=== PATIENT | female | born 1935 | race Caucasian/White ===

== ENCOUNTER 2020-08-10 15:11 | Inpatient (IN) | payer MEDICARE, SELFPAY ==
[~2020-08-10] VITALS: Ht 154.9 cm; Wt 54.4 kg
[2020-08-10 15:11] VITALS: BP_SYST 131
--- NOTE | 2020-08-10 15:11 | NUR ---
BROUGHT IN BY [facility], PLACED IN BED #7 AND TRIAGED. REPORT GIVEN TO TAMIKA
--- NOTE | 2020-08-10 15:15 | NUR ---
PT ТАТЬЯНА FROM HOME AFTER NEIGHBORS REPORT FINDING HER ON THE FLOOR OUTSIDE. PT STATES SHE WAS INSIDE GOING THROUGH A BOX. PER EMS PT STATED SHE HAS NOT EATEN IN DAYS AND IS INCONTINANT OF URINE. PT IS CONFUSED UPON ARRIVAL BUT AAOX3, V/S STABLE, AMBULATORY WITH STEADY GAIT. PT DENIES FALL, NO NOTED INJURIES OR TRAUMA.
--- NOTE | 2020-08-10 15:25 | NUR ---
ER DR. HANSEN AT THE BEDSIDE EXAMINING PT
[2020-08-10] MEDS ORDERED: NACL 0.9% 1,000 ML IV ONE (15:30)
--- NOTE | 2020-08-10 15:30 | NUR ---
# 20 gauge angiocath placed to LFA. Use of asceptic technique. Opsite placed over site. Blood return noted. Blood for lab drawn from site. Flushed with 10 cc of normal saline. No evidence of infiltration noted. Patient tolerated well.
--- NOTE | 2020-08-10 15:48 | NUR ---
Patient transported to radiology via WC, accompanied by STAFF.
[2020-08-10 16:01] LABS: BASOPHILS # (AUTO) 0.1 K/uL (0.0-0.2); BASOPHILS % (AUTO) 0.8 % (0.0-2.0); EOSINOPHILS # (AUTO) 0.1 K/uL (0.0-0.4); EOSINOPHILS % (AUTO) 0.4 % (0.0-4.0); HEMOGLOBIN 16.2 g/dL (12.0-16.0); LYMPHOCYTES # (AUTO) 1.4 K/uL (1.0-5.5); LYMPHOCYTES % (AUTO) 10.6 % (20.5-51.5); MEAN CORPUSCULAR HEMOGLOBIN 30 pg (27-31); MEAN CORPUSCULAR HGB CONC 34 % (32-36); MEAN CORPUSCULAR VOLUME 88 fL (79.0-98.0); MONOCYTES # (AUTO) 0.7 K/uL (0.0-1.0); MONOCYTES % (AUTO) 5.2 % (1.7-9.3); PLATELET COUNT (AUTO) 209 K/uL (130-430); RED BLOOD CELL COUNT(AUTO) 5.43 MIL/uL (4.2-6.2); RED CELL DISTRIBUTION WIDTH 13.5 % (9.0-15.0); WHITE BLOOD COUNT (AUTO) 13.3 K/uL (4.8-10.8)
[2020-08-10 16:24] LABS: PROTHROMBIN TIME 10.5 SECS (9.5-12.5)
[2020-08-10 16:30] LABS: ALANINE AMINOTRANSFERASE 27 U/L (12-78); ALBUMIN 3.1 g/dL (3.4-4.8); ASPARTATE AMINOTRANSFERASE 43 U/L (10-37); CHLORIDE 107 mmol/L (98-107); GLUCOSE 125 mg/dL (70-99); POTASSIUM 3.9 mmol/L (3.5-5.1); SODIUM SERUM 145 mmol/L (136-145); TOTAL BILIRUBIN 1.8 mg/dL (0.0-1.0); UREA NITROGEN, BLOOD 26 mg/dL (8-21)
[2020-08-10] MEDS ORDERED: IPRATROPIUM/ALBUTEROL SULFATE 3 ML AMPUL.NEB (DUONEB) INH ONE (16:30)
[2020-08-10 16:35] LABS: ANION GAP 8 (5-15)
[2020-08-10 17:20] LABS: BILIRUBIN,URINE 1+ (NEGATIVE); BLOOD, URINE NEGATIVE (NEGATIVE); COLOR,URINE YELLOW (YELLOW); GLUCOSE,URINE NEGATIVE (NEGATIVE); KETONES,URINE 1+ (NEGATIVE); LEUKOCYTE ESTERASE ,URINE NEGATIVE (NEGATIVE); NITRITE, URINE NEGATIVE (NEGATIVE); PROTEIN URINE TRACE (NEGATIVE); UROBILINOGEN,URINE 0.2 (0.2-1.0)
[2020-08-10 17:23] LABS: CLARITY/URINE SLIGHTLY HAZY (CLEAR)
[2020-08-10 17:32] LABS: BACTERIA,URINE FEW /HPF (None Seen); HYALINE CASTS, URINE 0-10 /LPF (None Seen); MUCUS,URINE 2+ /LPF (None Seen); RBC,URINE NONE SEEN /HPF (0-3); WBC,URINE 0-3 /HPF (0-3)
[2020-08-10] MEDS ORDERED: cefTRIAXone 1 GM in D5W 50 ML IV ONE (18:00)
[2020-08-10] MEDS ORDERED: cefTRIAXone 1 GM VIAL ONE (18:00)
--- NOTE | 2020-08-10 18:11 | NUR ---
DR. CLINTON AT THE BEDSIDE EXAMINING PT
[2020-08-10] MEDS ORDERED: LR 500 ML IV ONE (18:15)
--- NOTE | 2020-08-10 18:28 | NUR ---
TAKEN TO RADIOLOGY VIA JAYLYN
[2020-08-10] MEDS ORDERED: IPRATROPIUM/ALBUTEROL SULFATE 3 ML AMPUL.NEB (DUONEB) INH PRN (18:45)
[2020-08-10] MEDS ORDERED: ASPIRIN 81 MG TABLET(ECOTRIN) PO ONE (18:45)
--- NOTE | 2020-08-10 18:55 | NUR ---
ADMISSION NOTE Received patient from ER via nydia, received report from PLATE SENSITIZER. Patient admitted with diagnosis of ALOC. Patient oriented to hospital routine, call light, toileting and safety-patient verbalized understanding.
[2020-08-10 20:00] VITALS: BP_SYST 117
[2020-08-10 20:41] VITALS: BP_SYST 128
[2020-08-11 02:14] VITALS: BP_SYST 116
--- NOTE | 2020-08-11 05:15 | NUR ---
CONSULTATION PAGED/CALLED Reason for Consultation: ALOC Person Who was Notified: DR DEAN WHO IS COVERING Simi LAMBERT Consulting Physician: DR DEAN Cardiac Rehab Nurse Specialty: Ordering Physician: MARY BETH
[2020-08-11 06:25] LABS: BASOPHILS # (AUTO) 0.1 K/uL (0.0-0.2); BASOPHILS % (AUTO) 0.6 % (0.0-2.0); EOSINOPHILS # (AUTO) 0.2 K/uL (0.0-0.4); EOSINOPHILS % (AUTO) 1.9 % (0.0-4.0); HEMATOCRIT 42.3 % (36-48); HEMOGLOBIN 14.1 g/dL (12.0-16.0); LYMPHOCYTES # (AUTO) 1.9 K/uL (1.0-5.5); LYMPHOCYTES % (AUTO) 18.6 % (20.5-51.5); MEAN CORPUSCULAR HEMOGLOBIN 30 pg (27-31); MEAN CORPUSCULAR HGB CONC 33 % (32-36); MEAN CORPUSCULAR VOLUME 90 fL (79.0-98.0); MONOCYTES # (AUTO) 0.7 K/uL (0.0-1.0); MONOCYTES % (AUTO) 6.3 % (1.7-9.3); NEUTROPHILS # (AUTO) 7.5 K/uL (1.8-7.7); NEUTROPHILS % (AUTO) 72.6 % (40.0-70.0); PLATELET COUNT (AUTO) 185 K/uL (130-430); RED BLOOD CELL COUNT(AUTO) 4.73 MIL/uL (4.2-6.2); RED CELL DISTRIBUTION WIDTH 13.5 % (9.0-15.0); WHITE BLOOD COUNT (AUTO) 10.3 K/uL (4.8-10.8)
[2020-08-11 06:56] LABS: ALANINE AMINOTRANSFERASE 25 U/L (12-78); ALBUMIN 2.4 g/dL (3.4-4.8); ANION GAP 7 (5-15); ASPARTATE AMINOTRANSFERASE 32 U/L (10-37); CHLORIDE 109 mmol/L (98-107); CREATININE 0.59 mg/dL (0.55-1.30); FREE T4 (FREE THYROXINE) 1.1 ng/dl (0.8-1.5); GLUCOSE 77 mg/dL (70-99); POTASSIUM 3.5 mmol/L (3.5-5.1); SODIUM SERUM 146 mmol/L (136-145); THYROID STIMULATING HORMONE 2.94 uIu/mL (0.36-3.74); TOTAL BILIRUBIN 1.1 mg/dL (0.0-1.0); UREA NITROGEN, BLOOD 21 mg/dL (8-21)
--- NOTE | 2020-08-11 07:30 | NUR ---
AM ROUNDS: BEDSIDE REPORT GIVEN BY NIGHT NURSE GISELL.PATIENT ON THE BED,SLEEPING. CALL LIGHT WITH IN REACH.BED LOCKED AT LOWEST POSITION.BED ALARM ON. STABLE.
[2020-08-11 08:39] VITALS: BP_SYST 125
[2020-08-11] MEDS: ASPIRIN 81 MG TABLET(ECOTRIN) PO SCH (08:42)
[2020-08-11 12:00] VITALS: BP_SYST 126
--- NOTE | 2020-08-11 12:12 | NUR ---
SS notes: ACTIVITIES COUNSELOR received a referral from ED MD Cool, for pt home safety. ACTIVITIES COUNSELOR read the notes from file stating pt. was found outside her home, had not eaten in days and was incontinent of urine, confused. ACTIVITIES COUNSELOR met with patient bedside. Pt was friendly, maintained eye contact and was able to confirm her address and emergency contacts. Pt confirmed she lives alone and she only has a friend, Myra, who lives up the street that checks on her. Pt stated she speaks to Myra daily. Pts. daughter, Tricia Smith resides in [place] . Pt. stated, " I can't figure out why my daughter has not called me her at the hospital". Pt. added she has has a zwnroo-th-hke in [place], but they do not talk. During the interview, pt. tried her best to answer ACTIVITIES COUNSELOR's questions. Pt. did not know who her PCP is and said it had been a while since she had seen a dr. Pt. stated she did not fall. She was in her home sitting on the floor, going through a box. He door was unlocked and her neighbor came through to check on her and found her on the floor. Patient could not recall a lot of answers such as when was the last time she received her grocery delivery, when did she eat last, what was the last meal she prepared? According to pt. her daughter pays her rent and has groceries delivered to pts. home. ACTIVITIES COUNSELOR asked pt. who cooks and cleans for her. Pt. stated she does it all. Pt. stated she is able to walk around on her own. Pt. has a walker in the garage and is thinking of getting it out and brining it inside in the event she needs it. Pt. stated she gets around and does not have to walk about too much. Patinent stated she lives in a home and there is a step to get to the patio, a step to walk into the house and a step to the porch. Pt. stated she does not use any DMEs. ACTIVITIES COUNSELOR revisited pts. self care. Pt. stated she gets groceries sent to her. Pt. will make toast, a sandwich and then looked off into the distance as if to recall more food she prepares and eats. ACTIVITIES COUNSELOR will call the daugther and possibly APS. Addendum: 08/11/20 at 1454 by Jessica Palacio ACTIVITIES COUNSELOR notes ACTIVITIES COUNSELOR called pts. daughter, no answer so tried son-in-law David's Ph, . 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 hogan. Daughter Tricia and son-in-law David stated they dropped everything and traveled all night to get here. They were disappointed to hear they will not be permitted inside to see pt. Both gave some additional info. stating their friends, kicked in the door to get to pt. inside her home. Pt. was found on the floor, weak, unable to stand and was sitting in her own feces and urine. It is unknown how long pt. had been there. Tricia confirmed she sends groceries in addition to a food runner, Swanns with meals already prepared. Pt. was not storing them correctly and the groceries were pile outside the door. David stated the ambulance had to clear a pathway in order to get in and out of the home as stuff was just stored and piled. Both David and Tricia would like for pt. upon discharge to go to a facility to gain her strength and then they would want to move pt. to [place] to live with them. Both Tricia and David stated it is clear to them pt. cannot live in her home alone. Family would like to speak to Dr. Astorga today for an update. Sup. Seda Yung assisted ACTIVITIES COUNSELOR in helping the family come to the window to see pt. ACTIVITIES COUNSELOR will call Dr. Astorga to ask him to speak to the family. Family is staying at a nearby [facility] and are having work done on pts. home as they stated it is in real bad shape. After the family visit through the window, ACTIVITIES COUNSELOR notified Seda the visit has ended. Family can be reached with the above stated phone numbers.
--- NOTE | 2020-08-11 12:19 | NUR ---
PAGED DR EMIL ZHOU, SPOKE WITH EXCHANGE
[2020-08-11] MEDS: cefTRIAXone 1 GM in D5W 50 ML IV SCH (12:45)
--- NOTE | 2020-08-11 13:15 | NUR ---
Family Came: Spoke with daughter Tricia and son in law David at the lobby ,updates given and psychotherapist social worker will talk to them as well.
--- NOTE | 2020-08-11 13:20 | NUR ---
Id Called back: Spoke with Dr Hunter relayed results positive blood culture,continue with current iv antibiotics ,Rocephin and Vancomycin and awaits sensitivity.
[2020-08-11] MEDS: VANCOMYCIN HCL 750 MG/NS 250 ML IV SCH (13:41)
--- NOTE | 2020-08-11 18:40 | NUR ---
Closing Notes: Patient ate dinner. Iv to saline lock. Call light with in reach. Bed locked at lowest position.Safety measures rendered. Bed alarm on. Not in any distress.continue to monitor.
--- NOTE | 2020-08-11 19:25 | NUR ---
CHANGE OF SHIFT; endorsed by day shift. no distress. schedule for abdominal US in am. call light within reach.
[2020-08-11 20:15] VITALS: BP_SYST 126
--- NOTE | 2020-08-11 20:15 | NUR ---
NOTES; pt. checked, resting in bed, uses bedside commode. VS checked, IV lock on left arm. on room air, occ. bouts of cough. cutting department supervisor shows sinus rhythm. instructed pt. to use call light if help needed and verbalized understanding.
--- NOTE | 2020-08-11 21:00 | NUR ---
NOTES: no medications due. no complaints.
--- NOTE | 2020-08-11 22:30 | NUR ---
NOTES: pt. checked, and sleeping. will be NPO after midnite for abdominal US in am.
--- NOTE | 2020-08-12 00:30 | NUR ---
NOTES: pt. awakened, assisted to the bedside commode. IV antibiotic start to infuse. pt. instructed to be NPO for abdominal ultrasoun=d this am.
[2020-08-12] MEDS: VANCOMYCIN HCL 750 MG/NS 250 ML IV SCH ×2 (00:33→12:48)
[2020-08-12 00:57] VITALS: BP_SYST 151
--- NOTE | 2020-08-12 03:04 | NUR ---
NOTES: made rounds and pt. sleeping. repositioned self for comfort.
--- NOTE | 2020-08-12 03:15 | NUR ---
NOTES: pt. HR on the monitor on the low 40-50's , asymptomatic. continue to monitor.
--- NOTE | 2020-08-12 05:11 | NUR ---
NOTES: condition observed, continue to monitor. pt. remain sleeping. remains sinus bradycardia.
--- NOTE | 2020-08-12 06:44 | NUR ---
CLOSING NOTES; pt. remain sleeping. IV tko , will IV lock when awake, no complaints. for further care and assist. will endorse to incoming shift.
[2020-08-12 08:00] VITALS: BP_SYST 150
[2020-08-12] MEDS: ASPIRIN 81 MG TABLET(ECOTRIN) PO SCH (08:29)
[2020-08-12 11:26] VITALS: BP_SYST 124
[2020-08-12] MEDS: cefTRIAXone 1 GM in D5W 50 ML IV SCH (11:42)
[2020-08-12] MEDS ORDERED: D5W 500 ML IV ONE (13:30)
[2020-08-12] MEDS ORDERED: PANTOPRAZOLE SODIUM 40 MG TAB PO ONE (13:30)
--- NOTE | 2020-08-12 14:30 | NUR ---
Note Pt was seen and assessed by Dr Astorga at 1300. Questions/concerns were answered at this time. Pt got OOB and ambulated with PT at 1400 with FWW. Pt went out into hallway with steady gait and standby assist. Pt got tired after one round of ambulation and now resting in bed. Pt used BSC all shift to void independently. Pt next to nurses' station for close observation for needs and care. Call light within reach.
--- NOTE | 2020-08-12 15:34 | NUR ---
DC Planning : discussed dcp with son in law/David: stated him and pt dtr/Tricia want pt going to snf. He will contact his /Tricia to call be back sierra to concur with the snf choice. Ins. contracted sn[facility] provided [facility], [facility].
[2020-08-12 16:00] VITALS: BP_SYST 127
--- NOTE | 2020-08-12 19:15 | NUR ---
OPENING NOTE REPORT RECEIVED FROM DAYSHIFT NURSE. PATIENT RECEIVED LYING IN BED, AWAKE, NO S/S OF ACUTE DISTRESS, PATIENT DENIES PAIN. BREATHING EVEN AND UNLABORED. IVF INFUSING WELL, IV SITE PATENT, NO SIGNS OF INFILTRATION OR INFECTION NOTED. CALL LIGHT WITH PATIENT. BED IS LOCKED AND AT LOWEST POSITION. WILL CONTINUE TO MONITOR.
[2020-08-12 20:00] VITALS: BP_SYST 125
[2020-08-13 00:40] VITALS: BP_SYST 130
[2020-08-13] MEDS: VANCOMYCIN HCL 750 MG/NS 250 ML IV SCH (00:47)
--- NOTE | 2020-08-13 03:42 | NUR ---
TRANSFER OF CARE PATIENT IN BED, ASLEEP. NO S/S OF ACUTE DISTRESS. ALL NEEDS MET THROUGHOUT SHIFT. FALL, SAFETY PRECAUTIONS MAINTAINED.
--- NOTE | 2020-08-13 03:45 | NUR ---
NOTES: report given from nurse Gil for continuity of care. New IV site on left forearm and resume IVF. pt. back to bed and repositioned self for comfort. no complaints noteed. pt. uses bedside commode. call light within reach.
--- NOTE | 2020-08-13 05:30 | NUR ---
NOTES: pt. checked and sleeping comfortably. continue to mnitor.
--- NOTE | 2020-08-13 06:49 | NUR ---
CLOSING NOTES; pt. still sleeping. no complaints. IVF infusing. needs attended . for further care and assistance. call light within reach.
[2020-08-13 06:53] LABS: BASOPHILS # (AUTO) 0.1 K/uL (0.0-0.2); BASOPHILS % (AUTO) 0.8 % (0.0-2.0); EOSINOPHILS # (AUTO) 0.2 K/uL (0.0-0.4); EOSINOPHILS % (AUTO) 1.8 % (0.0-4.0); HEMATOCRIT 43.9 % (36-48); HEMOGLOBIN 14.8 g/dL (12.0-16.0); LYMPHOCYTES # (AUTO) 1.5 K/uL (1.0-5.5); LYMPHOCYTES % (AUTO) 14.5 % (20.5-51.5); MEAN CORPUSCULAR HEMOGLOBIN 30 pg (27-31); MEAN CORPUSCULAR HGB CONC 34 % (32-36); MEAN CORPUSCULAR VOLUME 90 fL (79.0-98.0); MONOCYTES # (AUTO) 0.8 K/uL (0.0-1.0); MONOCYTES % (AUTO) 7.5 % (1.7-9.3); NEUTROPHILS # (AUTO) 7.8 K/uL (1.8-7.7); NEUTROPHILS % (AUTO) 75.4 % (40.0-70.0); PLATELET COUNT (AUTO) 198 K/uL (130-430); RED BLOOD CELL COUNT(AUTO) 4.91 MIL/uL (4.2-6.2); RED CELL DISTRIBUTION WIDTH 13.3 % (9.0-15.0); WHITE BLOOD COUNT (AUTO) 10.3 K/uL (4.8-10.8)
[2020-08-13 07:11] LABS: ALANINE AMINOTRANSFERASE 40 U/L (12-78); ALBUMIN 2.4 g/dL (3.4-4.8); ANION GAP 7 (5-15); ASPARTATE AMINOTRANSFERASE 32 U/L (10-37); CHLORIDE 105 mmol/L (98-107); CREATININE 0.59 mg/dL (0.55-1.30); GLUCOSE 91 mg/dL (70-99); POTASSIUM 3.7 mmol/L (3.5-5.1); SODIUM SERUM 141 mmol/L (136-145); TOTAL BILIRUBIN 0.9 mg/dL (0.0-1.0); UREA NITROGEN, BLOOD 14 mg/dL (8-21)
[2020-08-13 07:48] VITALS: BP_SYST 122
[2020-08-13] MEDS: ASPIRIN 81 MG TABLET(ECOTRIN) PO SCH (08:17)
[2020-08-13] MEDS: PANTOPRAZOLE SODIUM 40 MG TAB PO SCH (08:17)
[2020-08-13 09:50] VITALS: BP_SYST 122
--- NOTE | 2020-08-13 10:12 | NUR ---
CM note: [facility]: the pt is accepted but will take the pt on Saturday. She needs to get auth from [facility] insurance. Kirit Solano/fercho Gutierrez, unable to accept the pt. The facility is not contracted with [facility] senior plan , but only with [facility] plan.
[2020-08-13] MEDS ORDERED: IPRA3AMP9 INH (11:18)
[2020-08-13] MEDS ORDERED: Aspirin Ec PO (11:18)
[2020-08-13] MEDS ORDERED: PRO40 PO (11:18)
[2020-08-13] MEDS: cefTRIAXone 1 GM in D5W 50 ML IV SCH (11:19)
[2020-08-13] MEDS ORDERED: MULT-1117 PO (11:19)
--- NOTE | 2020-08-13 11:40 | NUR ---
Taz Astorga, family want to talk to the admitting doctor. Addendum: 08/13/20 at 1145 by Kusum Coker RN Daughter Kim. Smith spoke to Dr. Astorga
[2020-08-13 12:39] VITALS: BP_SYST 129
--- NOTE | 2020-08-13 14:15 | NUR ---
Out of bed to bedside commode with minimal assist , perineal care /hygiene given , hair dry shampoo , safety/fall precaution initiated.
[2020-08-13 17:03] VITALS: BP_SYST 132
--- NOTE | 2020-08-13 19:30 | NUR ---
OPENING NOTES: Received report from dayshift nurse. Patient is laying in bed with no s/s of distress or discomfort. She is on room air tolerating well. IV noted on LFA with dry and intact dressing. Ensured all safety precautions. Bed is locked and in the lowest position with call light within reach.
[2020-08-13 20:00] VITALS: BP_SYST 122
[2020-08-14] VITALS: BP_SYST 131
[2020-08-14 08:09] VITALS: BP_SYST 144
[2020-08-14] MEDS: PANTOPRAZOLE SODIUM 40 MG TAB PO SCH (08:51)
[2020-08-14] MEDS: ASPIRIN 81 MG TABLET(ECOTRIN) PO SCH (08:52)
[2020-08-14 11:21] VITALS: BP_SYST 149
[2020-08-14] MEDS: cefTRIAXone 1 GM in D5W 50 ML IV SCH (12:44)
[2020-08-14 15:45] VITALS: BP_SYST 126
--- NOTE | 2020-08-14 19:30 | NUR ---
OPENING NOTE RECEIVED PATIENT REPORT FROM DAY SHIFT RN. PATIENT IS ALERT, AWAKE, AND ORIENTED X 3. PATIENT IS RESTING IN HER BED. NO SIGNS OF ACUTE DISTRESS NOTED. PATIENT IS BREATHING EASY UNLABORED TO ROOM AIR. NO SIGNS OF RESPIRATORY DISTRESS NOTED. CALL LIGHT WITHIN REACH. BED IS LOCKED AND BED ALARM IS ON AT THE LOWEST POSITION. SAFETY AND FALL PRECAUTIONS IN PLACED. WILL CONTINUE TO MONITOR.
[2020-08-14 20:00] VITALS: BP_SYST 142
--- NOTE | 2020-08-14 22:50 | NUR ---
IV PLACEMENT: # 22 gauge angiocath placed to RIGHT AC. Use of asceptic technique. Opsite placed over site. Blood return noted. Flushed with 5 cc of normal saline. No evidence of infiltration noted. Patient tolerated WELL.
--- NOTE | 2020-08-14 23:41 | NUR ---
NOTIFIED DR. CLINTON REGARDING PT HIGH BLOOD PRESSURE. NEW ORDER RECEIVED. WILL CARRY OUT.
[2020-08-14] MEDS ORDERED: cloNIDine HCL 0.1 MG TABLET PO PRN (23:45)
[2020-08-15] VITALS: BP_SYST 146
[2020-08-15 06:30] LABS: BASOPHILS # (AUTO) 0.1 K/uL (0.0-0.2); BASOPHILS % (AUTO) 0.7 % (0.0-2.0); EOSINOPHILS # (AUTO) 0.2 K/uL (0.0-0.4); EOSINOPHILS % (AUTO) 2.2 % (0.0-4.0); HEMATOCRIT 42.8 % (36-48); HEMOGLOBIN 14.3 g/dL (12.0-16.0); LYMPHOCYTES # (AUTO) 1.5 K/uL (1.0-5.5); LYMPHOCYTES % (AUTO) 18.4 % (20.5-51.5); MEAN CORPUSCULAR HEMOGLOBIN 30 pg (27-31); MEAN CORPUSCULAR HGB CONC 33 % (32-36); MEAN CORPUSCULAR VOLUME 90 fL (79.0-98.0); MONOCYTES # (AUTO) 0.7 K/uL (0.0-1.0); MONOCYTES % (AUTO) 8.8 % (1.7-9.3); NEUTROPHILS # (AUTO) 5.6 K/uL (1.8-7.7); NEUTROPHILS % (AUTO) 69.9 % (40.0-70.0); PLATELET COUNT (AUTO) 213 K/uL (130-430); RED BLOOD CELL COUNT(AUTO) 4.76 MIL/uL (4.2-6.2); RED CELL DISTRIBUTION WIDTH 13.7 % (9.0-15.0); WHITE BLOOD COUNT (AUTO) 8.1 K/uL (4.8-10.8)
--- NOTE | 2020-08-15 06:46 | NUR ---
CLOSING NOTE Addendum: 08/15/20 at 0646 by Jaime Pearson RN BARBARA
--- NOTE | 2020-08-15 06:46 | NUR ---
CLOSING NOTE PATIENT IS RESTING IN HER BED. NO SIGNS OF ACUTE DISTRESS NOTED. PATIENT IS BREATHING EASY UNLABORED TO ROOM AIR. NO SIGNS OF RESPIRATORY DISTRESS NOTED. CALL LIGHT WITHIN REACH. BED IS LOCKED, BED ALARM IS ON AND PLACED AT THE LOWEST POSITION. SAFETY AND FALL PRECAUTIONS IN PLACED. ALL NEEDS ARE MET THROUGHOUT SHIFT. WILL CONTINUE TO MONITOR UNTIL ENDORSE TO DAY SHIFT RN.
[2020-08-15 06:50] LABS: ANION GAP 7 (5-15); CALCIUM 8.3 mg/dL (8.4-11.0); CHLORIDE 105 mmol/L (98-107); CREATININE 0.86 mg/dL (0.55-1.30); GLUCOSE 89 mg/dL (70-99); POTASSIUM 3.5 mmol/L (3.5-5.1); SODIUM SERUM 143 mmol/L (136-145); UREA NITROGEN, BLOOD 20 mg/dL (8-21)
[2020-08-15 08:30] VITALS: BP_SYST 146
[2020-08-15] MEDS: ASPIRIN 81 MG TABLET(ECOTRIN) PO SCH (08:35)
[2020-08-15] MEDS: PANTOPRAZOLE SODIUM 40 MG TAB PO SCH (08:35)
--- NOTE | 2020-08-15 09:10 | NUR ---
OPENING NOTES: RECEIVED REPORT FROM ANDI USING SBAR REPORTING. WILL CONTINUE TO MONITOR PATIENT.
[2020-08-15] MEDS: cefTRIAXone 1 GM in D5W 50 ML IV SCH (11:32)
[2020-08-15 12:00] VITALS: BP_SYST 148
[2020-08-15 16:33] VITALS: BP_SYST 132
--- NOTE | 2020-08-15 19:20 | NUR ---
OPENING NOTES RECEIVED PATIENT IN BED AWAKE. BREATHING UNLABORED ON ROOM AIR. NO C/O PAIN AT THIS TIME. BED IN LOWEST LOCKED POSITION WITH ALARM ON. CALL LIGHT WITH IN REACH.
--- NOTE | 2020-08-15 19:32 | NUR ---
CLOSING NOTES: PATIENT IS AWAKE LAYING DOWN IN BED. TOLERATED OXYGEN ON ROOM AIR WITH NO DISTRESS NOTED. IV LINE PATENT AND INTACT WITH NO INFILTRATION NOTED. PATIENT STABLE CONDITION. SAFETY, FALL, AND ASPIRATION PRECAUTIONS REMAINED IN PLACE. BED LOCKED IN LOWEST POSITION AND CALL LIGHT IN REACH. WILL ENDORSE PATIENT CARE TO ONCOMING COST ENGINEER NURSE.
[2020-08-15 20:58] VITALS: BP_SYST 124
--- NOTE | 2020-08-15 21:02 | NUR ---
VITALS PATIENT VITAL SIGNS TAKEN ALL STABLE. DENIES ANY PAIN. ENCOURAGED PATIENT TO USE CALL LIGHT FOR ASSISTANCE, PLACED WITH IN REACH. NO DISTRESS NOTED.
--- NOTE | 2020-08-15 23:45 | NUR ---
OOB ASSISTED PATIENT WITH BEDSIDE COMMODE USE. PERINEAL CARE DONE.
[2020-08-16] VITALS: BP_SYST 121
--- NOTE | 2020-08-16 00:35 | NUR ---
ROUNDS PATIENT RESTING IN BED. BREATHING UNLABORED ON ROOM AIR. VITAL SIGNS STABLE. CALL LIGHT WITH IN REACH.
--- NOTE | 2020-08-16 03:22 | NUR ---
ROUNDS NO DISTRESS NOTED. BED ALARM ON.
--- NOTE | 2020-08-16 06:46 | NUR ---
CLOSING NOTES PATIENT NEEDS ATTENDED. CONDITION UNCHANGED.
--- NOTE | 2020-08-16 07:25 | NUR ---
OPENING NOTES: RECEIVED FROM QUALITY CONTROL LEAD NURSE. PATIENT IS ASLEEP LAYING IN BED. TOLERATED OXYGEN ON ROOM AIR WITH NO DISTRESS NOTED. IV LINE PATENT AND INTACT WITH NO INFILTRATION NOTED. PATIENT IN STABLE CONDITION. SAFETY, FALL, AND ASPIRATION PRECAUTIONS ARE IN PLACE. BED LOCKED IN LOWEST POSITION AND CALL LIGHT IN REACH. WILL CONTINUE TO MONITOR PATIENT FOR ANY CHANGES.
[2020-08-16 08:00] VITALS: BP_SYST 143
[2020-08-16] MEDS: PANTOPRAZOLE SODIUM 40 MG TAB PO SCH (08:10)
[2020-08-16] MEDS: ASPIRIN 81 MG TABLET(ECOTRIN) PO SCH (08:10)
[2020-08-16 09:07] VITALS: BP_SYST 143
[2020-08-16] MEDS: cefTRIAXone 1 GM in D5W 50 ML IV SCH (11:30)
--- NOTE | 2020-08-16 11:32 | NUR ---
Dietitian Recommendations *Recommend: continue Mechanical soft diet as ordered. *Recommend: add ONS Ensure Enlive BID (provides: 700 kcal, 40gm protein daily). *Recommend: add stool regimen for regular BM's. (No BM x 5 days). Please see Nutritional Assessment for details. CASSIE HAUSER
[2020-08-16 12:23] VITALS: BP_SYST 130
[2020-08-16 16:18] VITALS: BP_SYST 135
--- NOTE | 2020-08-16 18:55 | NUR ---
CLOSING NOTES: PATIENT IS ASLEEP LAYING IN BED. TOLERATED OXYGEN ON ROOM AIR WITH NO DISTRESS NOTED. IV LINE PATENT AND INTACT WITH NO INFILTRATION NOTED. PATIENT IN STABLE CONDITION. SAFETY, FALL, AND ASPIRATION PRECAUTIONS REMAINED IN PLACE. BED LOCKED IN LOWEST POSITION AND CALL LIGHT IN REACH. WILL ENDORSE PATIENT CARE TO ONCOMING DRESSING ROOM PORTER NURSE.
--- NOTE | 2020-08-16 19:30 | NUR ---
OPENING NOTES: RECEIVED REPORT FROM DAY SHIFT NURSE. PATIENT IS ASLEEP LAYING IN BED. TOLERATED OXYGEN ON ROOM AIR WITH NO DISTRESS NOTED. IV LINE PATENT AND INTACT WITH NO INFILTRATION NOTED. PATIENT IN STABLE CONDITION. SAFETY, FALL, AND ASPIRATION PRECAUTIONS ARE IN PLACE. BED LOCKED IN LOWEST POSITION AND CALL LIGHT IN REACH. WILL CONTINUE TO MONITOR PATIENT FOR ANY CHANGES.
[2020-08-16 20:00] VITALS: BP_SYST 122
[2020-08-17] VITALS: BP_SYST 146
--- NOTE | 2020-08-17 03:46 | NUR ---
RN NOTE PT RESTING IN BED. NO S/S OF ACUTE DISTRESS NOTED. WILL MONITOR.
[2020-08-17 06:54] LABS: BASOPHILS # (AUTO) 0.1 K/uL (0.0-0.2); EOSINOPHILS # (AUTO) 0.2 K/uL (0.0-0.4); EOSINOPHILS % (AUTO) 2.2 % (0.0-4.0); HEMATOCRIT 41.4 % (36-48); HEMOGLOBIN 13.8 g/dL (12.0-16.0); LYMPHOCYTES # (AUTO) 1.8 K/uL (1.0-5.5); LYMPHOCYTES % (AUTO) 20.9 % (20.5-51.5); MEAN CORPUSCULAR HEMOGLOBIN 30 pg (27-31); MEAN CORPUSCULAR HGB CONC 33 % (32-36); MEAN CORPUSCULAR VOLUME 90 fL (79.0-98.0); MONOCYTES # (AUTO) 0.7 K/uL (0.0-1.0); MONOCYTES % (AUTO) 8.3 % (1.7-9.3); NEUTROPHILS # (AUTO) 5.7 K/uL (1.8-7.7); NEUTROPHILS % (AUTO) 67.6 % (40.0-70.0); PLATELET COUNT (AUTO) 241 K/uL (130-430); RED BLOOD CELL COUNT(AUTO) 4.62 MIL/uL (4.2-6.2); RED CELL DISTRIBUTION WIDTH 13.4 % (9.0-15.0); WHITE BLOOD COUNT (AUTO) 8.4 K/uL (4.8-10.8)
--- NOTE | 2020-08-17 07:04 | NUR ---
CLOSING NOTE PATIENT IS ASLEEP LAYING IN BED. TOLERATED OXYGEN ON ROOM AIR WITH NO DISTRESS NOTED. IV LINE PATENT AND INTACT WITH NO INFILTRATION NOTED. PATIENT IN STABLE CONDITION. SAFETY, FALL, AND ASPIRATION PRECAUTIONS ARE IN PLACE. BED LOCKED IN LOWEST POSITION AND CALL LIGHT IN REACH. WILL CONTINUE TO MONITOR PATIENT UNTIL REPORT IS GIVEN TO DAY SHIFT RN.
[2020-08-17 07:15] LABS: ANION GAP 7 (5-15); CALCIUM 8.7 mg/dL (8.4-11.0); CHLORIDE 107 mmol/L (98-107); CREATININE 0.61 mg/dL (0.55-1.30); GLUCOSE 89 mg/dL (70-99); POTASSIUM 3.9 mmol/L (3.5-5.1); SODIUM SERUM 145 mmol/L (136-145); UREA NITROGEN, BLOOD 22 mg/dL (8-21)
--- NOTE | 2020-08-17 07:56 | NUR ---
OPENING NOTE RECEIVED REPORT FROM NIGHT NURSE. PATIENT IS ALERT AND ORIENTED X4. ON ROOM AIR AND TOLERATING WELL WITH NO SIGNS OF SHORTNESS OF BREATH NOTED. IV IS PATENT, SALINE LOCKED. BED LOCKED AND IN LOWEST POSITION. CALL LIGHT WITHIN REACH. FALL AND SAFETY PRECAUTIONS IN PLACE. WILL CONTINUE TO MONITOR.
[2020-08-17 08:00] VITALS: BP_SYST 127
[2020-08-17] MEDS: PANTOPRAZOLE SODIUM 40 MG TAB PO SCH (08:16)
[2020-08-17] MEDS: ASPIRIN 81 MG TABLET(ECOTRIN) PO SCH (08:17)
[2020-08-17] MEDS: cefTRIAXone 1 GM in D5W 50 ML IV SCH (11:15)
[2020-08-17 12:18] VITALS: BP_SYST 122
--- NOTE | 2020-08-17 14:00 | NUR ---
Late entry for Tuesday 08/15 at 1348 pm: Faxed [facility] order requesting auth for [facility] to [employer]/Britany # [phone], tel [phone] followed up on Wednesday 08/16. :VM to Debi # [phone] x2 . I did not received a call back, by 1500 I called Britany asking her to f/u on authorization. She said Debi was doing the review and will need more support documentation. Debi called be back requested PT and updated progress notes. I faxed to her per request. >> Today I LVM followed up , to Debi x2 this am. No call back from her. Again, I called Britany to help expedite the auth process. She said she would text Debi to call me back. Addendum: 08/17/20 at 1554 by Agnes Doty RN >> LVM with [facility] dept: to Britany and Debi again, followed up on snf authorization decision for [facility]. >> Tricia /KJ made aware of the pending authorization for transfer.
[2020-08-17 16:42] VITALS: BP_SYST 129
--- NOTE | 2020-08-17 18:35 | NUR ---
CLOSING NOTE PATIENT IS RESTING IN BED. ALERT AND ORIENTED X4. ON ROOM AIR AND TOLERATING WELL WITH NO SIGNS OF SHORTNESS OF BREATH NOTED. IV IS PATENT, SALINE LOCKED. BED LOCKED AND IN LOWEST POSITION. CALL LIGHT WITHIN REACH. FALL AND SAFETY PRECAUTIONS IN PLACE. WILL ENDORSE TO NIGHT NURSE.
--- NOTE | 2020-08-17 19:30 | NUR ---
OPENING NOTES: Received report from dayshift nurse. Patient is resting in bed with no s/s of distress or discomfort. She is on room air, tolerating well. IV noted on RAC SL with dry and intact dressing. Ensured all safety precautions. Bed is locked and in the lowest position with alarm on and call light within reach.
[2020-08-17 20:00] VITALS: BP_SYST 130
[2020-08-18 00:10] VITALS: BP_SYST 137
--- NOTE | 2020-08-18 07:25 | NUR ---
CLOSING NOTES: Patient is resting in bed with no s/s of distress or discomfort. She is on room air, tolerating well. IV on RAC SL with dry and intact dressing. Ensured all safety precautions. Bed is locked and in the lowest position with alarm on and call light within reach. All needs were met throughout shift. Endorsed care to dayshift nurse.
[2020-08-18 08:00] VITALS: BP_SYST 143
[2020-08-18] MEDS: ASPIRIN 81 MG TABLET(ECOTRIN) PO SCH (08:00)
[2020-08-18] MEDS: PANTOPRAZOLE SODIUM 40 MG TAB PO SCH (08:00)
[2020-08-18] MEDS ORDERED: MULTIVITS,CA,MINERALS/IRON/FA 1 TABLET PO SCH (09:00)
--- NOTE | 2020-08-18 10:30 | NUR ---
CM note: Received call from Delia/[employer] who provided the snf auth, said she would send the hard copy to [facility] today. The pt is approved for 5 days for IV abx and PT. Addendum: 08/18/20 at 1529 by Agnes Doty RN F/u with [employer] precert/Provider line [phone] opt 3, per [place]: the pt is approved for [facility] for 5 days from August 18 to 2020 . auth # [id number]. and may use any ambulance who accept Medicare insurance. >> Booked Medic 1 with Rad for BLS transfer. ETA 1630. Pt's dtr/Tricia and son in law/David made aware. They agreed with the transfer. -- CARA Rajput made aware, DC package placed in MST unit. Disposition 03
[2020-08-18 12:16] VITALS: BP_SYST 146
[2020-08-18 15:23] VITALS: BP_SYST 143
--- NOTE | 2020-08-18 16:04 | NUR ---
PT TRANSFERRED Report given to NATHALIE at [facility]. Transfer packet with Transfer Orders and Medication Reconciliation form given to EMT with report. Exitcare provided. [facility] ID band removed, replaced with ID band with pt's name and . IV catheter removed, intact and dressing applied, no active bleeding. All belongings sent with patient. Patient left floor via gurney escorted by EMT in no distress.
--- NOTE | 2020-08-19 09:03 | NUR ---
Disposition 03
== END 2020-08-18 16:04 | DRG 71 ==
LOC: SED 15:11 → STU 18:13 → SMU 08-12 13:22
PROVIDERS: ADMIT Internal Medicine; ATTEND Internal Medicine
DX: G93.41 Metabolic encephalopathy (principal); E44.1 Mild protein-calorie malnutrition; N39.0 Urinary tract infection, site not specified; E87.2 Acidosis; E87.1 Hypo-osmolality and hyponatremia; E86.0 Dehydration; Z20.822 Contact with and (suspected) exposure to COVID-19; F03.90 Unspecified dementia, unspecified severity, without behavioral disturbance, psychotic disturbance, mood disturbance, and anxiety; J44.9 Chronic obstructive pulmonary disease, unspecified; K80.20 Calculus of gallbladder without cholecystitis without obstruction; Z60.2 Problems related to living alone; F17.210 Nicotine dependence, cigarettes, uncomplicated; Z68.22 Body mass index [BMI] 22.0-22.9, adult; Z79.899 Other long term (current) drug therapy; Z79.82 Long term (current) use of aspirin; Z90.710 Acquired absence of both cervix and uterus
CPT/HCPCS: 36415; 70450-TC; 71045; 71250-TC; 76376; 76700-TC; 80048; 80053; 80202; 81000; 82607; 82746; 83605; 84439; 84443; 84484; 85025; 85610-TC; 85730-TC; 87040-TC; 87086; 93005; 94640; 96361; 96365; 97110-GP; 97112-GP; 97116-GP; 97530-GP; 99285; G0378; J0696; J3370; J7060